=== PATIENT | female | born 1985 | race Caucasian/White ===

== ENCOUNTER 2023-08-04 21:46 | Inpatient (IN) | payer BC, SELFPAY ==
[2023-08-05 00:38] VITALS: BP 121/78; PULSE 76; RESP 18; TEMP 36.7; O2SAT 98
[2023-08-05 00:43] VITALS: BMI 34.1
--- NOTE | 2023-08-05 01:47 | PC.ADMIT ---
Patient is a 38 yr old female presented to [facility] at midnight on 08-05 from [facility] via EMS. She is groggy/sedated, states she just received IM Haldol and some other meds and is does not want to participate in a full assessment and wants to go to bed. Patient is calm and cooperative and states she is open the this experience but soon after showing her to her room she came out and requested a 3 day. When asked about her depression/anxiety, she states she is not really anxious but her depression has been chronic. She states she in not acutely suicidal. She states she has had thoughts with a plan as well as self harming behaviors. She has a wound non her left hip where she cut herself with a razorblade. The wound was treated at [facility] and she has a 4x4 dressing that is clean, dry, intact. She is alert/oriented x4, educated, states previous family trauma but does not elaborate. She lives alone in an apartment, no relationship. She states she has no current stressors. She states that her depression has been escalating since May. She was treated in-patient as well as recently a [facility] but they have not helped. Place on 5 minute checks d/t self harming behaviors and wound she currently has. Will continue to monitor sleep and behavior overnight and continue care with the team in the morning.
[2023-08-05] MEDS: hydrOXYzine HCL 25 MG TABLET PO (08:29)
[2023-08-05 08:47] LABS: Estimated Average Glucose 108 mg/dL; Hemoglobin A1c % 5.4 % (<6.0)
[2023-08-05 09:03] LABS: Alanine Aminotransferase 21 U/L (0-31); Albumin Level 4.2 g/dL (3.5-5.0); Alkaline Phosphatase 44 U/L (39-117); Anion Gap 10 (12-20); Aspartate Amino Transferase 44 U/L (5-31); Bilirubin Total 0.4 mg/dL (0.0-1.0); Blood Urea Nitrogen 10 mg/dL (9-16); Calcium 9.3 mg/dL (8.4-10.2); Carbon Dioxide 25 mmol/L (22-29); Chloride 107 mmol/L (96-108); Cholesterol 179 mg/dL (<200); Creatinine Clr Calc Pharmacy 120.4; Estimated Glomerular Filt Rate > 60; Glucose Fasting 101 mg/dL (60-99); HDL Cholesterol 46 mg/dL (>40); LDL Cholesterol Calculated 105 mg/dL (<100); Magnesium 2.1 mg/dL (1.6-2.6); Potassium 4.1 mmol/L (3.3-5.1); Sodium 138 mmol/L (135-145); Total Protein 7.2 g/dL (6.5-8.0); Triglycerides 141 mg/dL (<150)
--- NOTE | 2023-08-05 09:19 | P.HPPS_ITS ---
HPI Date of Service: 08/05/23 Chief Complaint: PTSD, Recurrent Major Depression, Borderline PersD Sources of Information: patient interviewed, chart reviewed and crisis/core team assessment reviewed HPI Subjective Notes: Alcazar Warning and Conditional Voluntary Narrative: Patient is a 38-year-old female with history of depression PTSD, currently works for the [employer], who presents after making a suicidal comment at [facility] hospital program. Few weeks ago Patient was discharged from inpatient psychiatric admission at [facility] (in [place]) for medication adjustment and has been attending a partial day program. ?Initially, Patient thought medication change (getting on Geodon) was helpful but it was increased right before discharge and she soon found it to be sedating, struggled to focus at work and felt nauseated and agitated and this past week discontinued medication.? Feeling dysregulated, She subsequently got a resurgence of SI, intermittent urges to superficially self-harm and depressive symptoms.? Patient is very clear however that she was in no way actually suicidal and that SI are just transient thoughts.? She denies any history of attempts, citing her Bahai radhames and love for her family as strong protective factors. ?Patient says that these urges are now resolved and she is starting to feel better as she has been off the Geodon for several days and the effect has worn off. Patient does not feel that she needs to be psychiatrically admitted and just wanted to discuss medication changes, asking if she can be discharge tomorrow so that she can get back to work. ?She does not want to stay longer for any further medication management at this time. On further discussion Patient about her history of therapy, including EMDR and trauma history. She also shared that she has a history of wanting to be physically restrained.? Patient discussed urged be restrained at length saying she chronically just feels this need to be held tightly. The urge is intermittent and often a strong hug by someone will be enough to satisfy her for months; and when she is dating someone she gets this need fulfilled.? She denies any sexual component associated with being restrained; she speculates it has to do with history of trauma but is not sure. ?She has looked into buying a contraption that she could have at home so that could satisfy this need and has considered hiring people to physically restrain her (her hesitancy due to not sure if she could trust the other people to remain safe). ?Regarding this urge/perceived need, Patient volunteered that during hospitalizations, she frequently purposely engages in self-harm specifically so that staff will be forced to physically restrain her. ?Patient said that she is feeling this urge now however she feels able to keep herself in control and will not self-harm.? Patient reiterated that she very much wants to discharge tomorrow but then asked insurance underwriter if she would still be allowed to discharge if tonight, she were to end up getting physically restrained? Past Psychiatric History: Psychiatric hospitalization 2021, May 2023 No history of suicide attempts Engaged in therapy including EMDR Medication trials: Antigo, not helpful, Seroquel, multiple SSRI trials, TMS, Abilify Medical Evaluation Reviewed: Hospitalist Adalberto Pending [facility] Medical History (Updated 10/16/23 @ 17:08 by Pk Shah MD) PTSD (post-traumatic stress disorder) Social History: Lives alone, currently employed by the [employer] where she is worked for 9 years. Substance History: Denies Trauma History: Positive trauma history Diagnostics Vital Signs (24Hr): Vital Signs - 24 hr 08/05/23 00:38 Temperature 98.0 F Pulse Rate 76 Respiratory Rate 18 Blood Pressure 121/78 Pulse Oximetry 98 Oxygen Delivery Method Room Air BMI result Body Mass Index 34.1 Labs 08/05/23 07:58 Labs: Laboratory Results - last 48 hr 08/05/23 07:58 Sodium 138 Potassium 4.1 Chloride 107 Carbon Dioxide 25 Anion Gap 10 L BUN 10 Creatinine 0.70 Estim Creat Clear Calc 120.4 Estimated GFR > 60 Fasting Glucose 101 H Estimat Average Glucose 108 Hemoglobin A1c % 5.4 Calcium 9.3 Magnesium 2.1 Total Bilirubin 0.4 AST 44 H ALT 21 Alkaline Phosphatase 44 Total Protein 7.2 Albumin 4.2 Triglycerides 141 Cholesterol 179 LDL Cholesterol, Calc 105 H HDL Cholesterol 46 Meds/Allergies Meds Home Medications Medication Instructions Recorded Confirmed Type alprazolam 0.25 mg tablet (Xanax) 0.25 mg PO DAILY PRN Anxiety 08/05/23 08/05/23 History hydroxyzine HCl 50 mg tablet 50 mg PO DAILY PRN anxiety 08/05/23 08/05/23 History trazodone 50 mg tablet 100 mg PO BEDTIME PRN insomnia 08/05/23 08/05/23 History venlafaxine 75 mg capsule,extended 225 mg PO QAM depressive disorder 08/05/23 08/05/23 History release 24 hr Allergies Allergies Allergy/AdvReac Type Severity Reaction Status Date / Time azithromycin Allergy Hives Verified 08/04/23 21:16 Mental Status Exam Mental Status Exam Narrative: Pt is alert and oriented; behavior is cooperative, friendly and calm; patient is not in distress; dressed in casual attire with unkempt hair but adequate hygiene; mood is described as ok and affect congruent; eye contact appropriate; Speech is normal rate, volume and prosody and not pressured; no psychomotor agitation/retardation present; thought process is organized and goal directed; Thought content is on tx, chronic struggles; otherwise pertinent to relevant topics and without any delusional content, paranoid ideations or grandiosity; denies any SI/HI. There is no evidence of perceptual disturbance. Patients insight and judgment appear intact. Assessment & Plan Assessment & Plan (1) PTSD (post-traumatic stress disorder): Status: Acute Code(s): F43.10 - Post-traumatic stress disorder, unspecified Plan Patient is a 38-year-old female with history of depression PTSD, currently works for the post [employer], who presents after making a suicidal comment at partial hospital program. Few weeks ago Patient was discharged from inpatient psychiatric admission at [facility] (in [place]) for medication adjustment and has been attending a partial day program. ?Initially, Patient thought medication change (getting on Geodon) was helpful but it was increased right before discharge and she soon found it to be sedating, struggled to focus at work and felt nauseated and agitated and this past week discontinued medication.? Feeling dysregulated, She subsequently got a resurgence of SI, intermittent urges to superficially self-harm and depressive symptoms.? Patient is very clear however that she was in no way actually suicidal and that SI are just transient thoughts.? She denies any history of attempts, citing her Bahai radhames and love for her family as strong protective factors. ?Patient says that these urges are now resolved and she is starting to feel better as she has been off the Geodon for several days and the effect has worn off. Patient does not feel that she needs to be psychiatrically admitted and just wanted to discuss medication changes, asking if she can be discharge tomorrow so that she can get back to work. ?She does not want to stay longer for any further medication management at this time. On further discussion Patient about her history of therapy, including EMDR and trauma history. She also shared that she has a history of wanting to be physically restrained.? Patient discussed urged be restrained at length saying she chronically just feels this need to be held tightly. The urge is intermittent and often a strong hug by someone will be enough to satisfy her for months; and when she is dating someone she gets this need fulfilled.? She denies any sexual component associated with being restrained; she speculates it has to do with history of trauma but is not sure. ?She has looked into buying a contraption that she could have at home so that could satisfy this need and has considered hiring people to physically restrain her (her hesitancy due to not sure if she could trust the other people to remain safe). ?Regarding this urge/perceived need, Patient volunteered that during hospitalizations, she frequently purposely engages in self-harm specifically so that staff will be forced to physically restrain her. ?Patient said that she is feeling this urge now however she feels able to keep herself in control and will not self-harm (she understands that fabricating self-harm in order to get restrained is maladaptive and unsafe for staff..).? Patient reiterated that she very much wants to discharge tomorrow but then asked insurance underwriter if she would still be allowed to discharge if tonight, she were to end up getting physically restrained? Impression: History of trauma, PTSD, depression. 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 At this time, Patient reports that she is back to baseline and wants to discharge tomorrow so that she can return to work. She has no history of suicide attempts and her passive SI is chronic and fleeting and resolves on its own. Patient acknowledges she has urges to purposely self-harm in order to for staff to physically restrain her. Patient says she will not do so. Patient has outpatient providers already established. Will have patient remain on the unit to observe her demonstrating continued stability however she is not in imminent risk for harm to self or others and she is appropriate to continue treatment in the community. Furthermore patient seems much more at risk of decompensating due to hospitalization, rather than benefiting from it as hospitalization itself triggers patient to purposely self- harm in order to get a necessarily restrained, a scenario that would be unsafe for everyone involved. Plan: CV Q 15 minute checks Continue home medications Likely DC tomorrow Patient educated on: diagnosis, medication risk/benefits and therapeutic strategies Informed Consent: understands Reason for continued inpatient stay Substantial Risk for: stable for discharge Statement Statement: I have reviewed the history and physical and performed a pertinent examination on my patient. No changes have occurred unless specified. If the History and Physical was not performed prior to admission, the Hospitalist's service will be consulted for completing the admission physical. Time Spent With Patient Time: Total time managing care of this patient today ____ minutes.
[2023-08-05 09:23] LABS: Free T4 (Free Thyroxine) 0.83 ng/dL (0.71-1.85); Thyroid Stimulating Hormone 2.38 uIU/mL (0.32-4.0)
[2023-08-05 09:29] LABS: Folate 11.7 ng/mL (> or = 4.0); Vitamin B12 741 pg/mL (200-900)
[2023-08-05] MEDS: Venlafaxine HCl ER 150 MG CAP.ER.24H PO (09:32)
[2023-08-05 09:44] VITALS: BP 130/78; PULSE 80; RESP 16; TEMP 36; O2SAT 100
--- NOTE | 2023-08-05 11:32 | P.CONHOSP_ITS ---
History of Present Illness Data of Consult Service Date: 08/05/23 Primary Care Provider: Unknown Physician HPI Reason for consult: Routine medical H&P 38 yo F who is admitted to for depression. She denies any PMH nor endorses any active medical issues. Medical consult requested for routine medical H&P per protocol. PMH Denies PSH Ortho surgery - elbow FH DM in father SH denies tobacco, alcohol, illicit substance use Review of Systems 2 Review of Systems: negative except HPI PMFSH Social History Household Members: None Housing: Apartment Do you presently have visiting nurse or other home services: No Patient Tobacco Use Status: Never used Tobacco Smoked in Last 30 Days: No e-Cigarette/Vaping Use: Never Used Second Hand Smoke Exposure: No Use of substances other than those prescribed or required for medical reasons: No Have you been hit, kicked, punched, or otherwise hurt by someone within the past year? If so, by whom?: No Do you feel safe in your current relationship?: No Current Relationship Is there a partner from a previous relationship who is making you feel unsafe now?: No Are you made to feel afraid or neglected: No Spiritual Healthcare Practices: spiritual, not pentecostal Advance Directives: No Advance Directives Information Provided: Yes Do you have thoughts of harming others: None Do you have a plan to hurt others: No Plan Recently lost weight without trying: No Eating poorly because of decreased appetite: Yes Nutrition Risks: No Nutritional Risk Patient : No : No Poor oral hygiene: No Meds Allergies Allergy/AdvReac Type Severity Reaction Status Date / Time azithromycin Allergy Hives Verified 08/04/23 21:16 Active Medications: Current Medications Acetaminophen (Acetaminophen 325 Mg Tablet) 650 mg PO Q6H PRN PRN Reason: Headache/Pain Mild Scale (1-3) Al Hydroxide/Mg Hydroxide (Magnesium Hydrox/Alum Hydrox 30 Ml Oral.Susp) 30 ml PO Q6H PRN PRN Reason: Heartburn/Nausea Hydroxyzine HCl (Hydroxyzine Hcl 25 Mg Tablet) 25 mg PO Q6H PRN PRN Reason: Anxiety Last Admin: 08/05/23 08:29 Dose: 25 mg Magnesium Hydroxide (Milk Of Magnesia 30 Ml Oral.Susp) 30 ml PO DAILY PRN PRN Reason: Constipation Trazodone HCl (Trazodone Hcl 50 Mg Tablet) 50 mg PO BEDTIME MRX1 PRN PRN Reason: Insomnia Venlafaxine HCl (Venlafaxine Hcl Er 150 Mg Cap.Er.24h) 150 mg PO DAILY NUVIA Last Admin: 08/05/23 09:32 Dose: 150 mg Physical Exam 2 Vital Signs and Narrative: Vital Signs: Last Vital Signs Temp 96.8 F 08/05/23 09:44 Pulse 80 08/05/23 09:44 Resp 16 08/05/23 09:44 BP 130/78 08/05/23 09:44 Pulse Ox 100 08/05/23 09:44 O2 Del Method Room Air 08/05/23 09:44 BMI result Body Mass Index 34.1 Const: Other: General - no acute distress, appears comfortable Cardiovascular - regular rate and rhythm, S1-S2 Lungs - normal respiratory effort, clear to auscultation bilaterally, no wheezing Abdomen - soft, nontender, no rebound or guarding Extremities - no edema bilaterally Neuro - awake and alert, no focal deficits; cn 2-12 intact b/l Results Labs 08/05/23 07:58 Labs: Laboratory Results - last 24 hr 08/05/23 07:58 Anion Gap 10 L Estim Creat Clear Calc 120.4 Estimated GFR > 60 Fasting Glucose 101 H Estimat Average Glucose 108 Hemoglobin A1c % 5.4 Calcium 9.3 Magnesium 2.1 Total Bilirubin 0.4 AST 44 H ALT 21 Alkaline Phosphatase 44 Total Protein 7.2 Albumin 4.2 Triglycerides 141 Cholesterol 179 LDL Cholesterol, Calc 105 H HDL Cholesterol 46 Vitamin B12 741 Folate 11.7 TSH 2.38 Free T4 0.83 Assessment and Plan (1) Routine medical exam: Status: Acute Plan 38 yo F who is admitted to . Medical consultation sought for routine medical H&P. Patient has no active nor chronic medical issues. Patient has been counseled on age appropriate health maintenance as an outpatient. Continue care per primary team. Will sign off. Please re-consult if any issues arise.
[2023-08-05] MEDS: clonazePAM 0.5 MG TABLET PO (12:30)
[2023-08-05] MEDS: lamoTRIgine 100 MG TABLET 200 MG PO ×2 (14:50→19:35)
[2023-08-05] MEDS: Ziprasidone 20 MG CAPSULE PO (17:06)
[2023-08-05 19:31] VITALS: BP 148/96; PULSE 101; RESP 18
[2023-08-05] MEDS: traZODone HCL 100 MG TABLET PO (19:35)
[2023-08-05] MEDS: Prazosin HCL 1 MG CAPSULE PO (19:35)
[2023-08-06 07:00] VITALS: BMI 33.8
[2023-08-06] MEDS: Venlafaxine HCl ER 37.5 MG CAP.ER.24H 187.5 MG PO (08:01)
[2023-08-06] MEDS: Ziprasidone 20 MG CAPSULE PO (08:01)
[2023-08-06] MEDS: Acetaminophen 325 MG TABLET 650 MG PO (08:24)
[2023-08-06] MEDS: hydrOXYzine HCL 50 MG TABLET PO (08:34)
--- NOTE | 2023-08-06 09:00 | ECG_ITS ---
Test Reason : qtc check Blood Pressure : / mmHG Vent. Rate : 078 BPM Atrial Rate : 078 BPM P-R Int : 144 ms QRS Dur : 080 ms QT Int : 354 ms P-R-T Axes : 053 033 033 degrees QTc Int : 403 ms Normal sinus rhythm with sinus arrhythmia Otherwise normal ECG No previous ECGs available Referred By: Pk Shah Electronically Signed By:CASEY DUMONT MD
[2023-08-06 09:10] VITALS: BP 116/76; PULSE 85; RESP 16; TEMP 36; O2SAT 97
--- NOTE | 2023-08-06 09:39 | P.PNPSI_ITS ---
Subjective Subjective Date of Service: 08/06/23 Reason For Visit: PTSD, Recurrent Major Depression, Borderline PersD Diagnostics Vital Signs (24Hr): Vital Signs - 24 hr 08/05/23 09:44 08/05/23 19:31 08/06/23 09:10 Temperature 96.8 F 96.8 F Pulse Rate 80 101 H 85 Respiratory Rate 16 18 16 Blood Pressure 130/78 148/96 H 116/76 Pulse Oximetry 100 97 Oxygen Delivery Method Room Air Room Air BMI result Body Mass Index 34.1 Labs 08/05/23 07:58 Labs: Laboratory Results - last 48 hr 08/05/23 07:58 Sodium 138 Potassium 4.1 Chloride 107 Carbon Dioxide 25 Anion Gap 10 L BUN 10 Creatinine 0.70 Estim Creat Clear Calc 120.4 Estimated GFR > 60 Fasting Glucose 101 H Estimat Average Glucose 108 Hemoglobin A1c % 5.4 Calcium 9.3 Magnesium 2.1 Total Bilirubin 0.4 AST 44 H ALT 21 Alkaline Phosphatase 44 Total Protein 7.2 Albumin 4.2 Triglycerides 141 Cholesterol 179 LDL Cholesterol, Calc 105 H HDL Cholesterol 46 Vitamin B12 741 Folate 11.7 TSH 2.38 Free T4 0.83 Medications Medications Current Medications Acetaminophen (Acetaminophen 325 Mg Tablet) 650 mg PO Q6H PRN PRN Reason: Headache/Pain Mild Scale (1-3) Last Admin: 08/06/23 08:24 Dose: 650 mg Al Hydroxide/Mg Hydroxide (Magnesium Hydrox/Alum Hydrox 30 Ml Oral.Susp) 30 ml PO Q6H PRN PRN Reason: Heartburn/Nausea Alprazolam (Alprazolam 0.25 Mg Tablet) 0.25 mg PO BID PRN PRN Reason: Anxiety/panic Clonazepam (Clonazepam 0.5 Mg Tablet) 0.5 mg PO DAILY PRN PRN Reason: Anxiety Last Admin: 08/05/23 12:30 Dose: 0.5 mg Hydroxyzine HCl (Hydroxyzine Hcl 50 Mg Tablet) 50 mg PO Q6H PRN PRN Reason: Anxiety Last Admin: 08/06/23 08:34 Dose: 50 mg Lamotrigine (Lamotrigine 100 Mg Tablet) 200 mg PO BEDTIME NUVIA Last Admin: 08/05/23 19:35 Dose: 200 mg Magnesium Hydroxide (Milk Of Magnesia 30 Ml Oral.Susp) 30 ml PO DAILY PRN PRN Reason: Constipation Prazosin HCl (Prazosin Hcl 1 Mg Capsule) 1 mg PO BEDTIME [facility]; Protocol Last Admin: 08/05/23 19:35 Dose: 1 mg Trazodone HCl (Trazodone Hcl 100 Mg Tablet) 100 mg PO BEDTIME [facility] Last Admin: 08/05/23 19:35 Dose: 100 mg Venlafaxine HCl (Venlafaxine Hcl Er 37.5 Mg Cap.Er.24h) 187.5 mg PO DAILY [facility] Last Admin: 08/06/23 08:01 Dose: 187.5 mg Ziprasidone (Ziprasidone 20 Mg Capsule) 20 mg PO BIDWM [facility] Last Admin: 08/06/23 08:01 Dose: 20 mg Allergies Allergies Allergy/AdvReac Type Severity Reaction Status Date / Time azithromycin Allergy Hives Verified 08/04/23 21:16 Assessment & Plan Assessment & Plan (1) Routine medical exam: Status: Acute Code(s): Z00.00 - Encounter for general adult medical examination without abnormal findings Plan 38 yo F who is admitted to . Medical consultation sought for routine medical H&P. Patient has no active nor chronic medical issues. Patient has been counseled on age appropriate health maintenance as an outpatient. Continue care per primary team. Will sign off. Please re-consult if any issues arise. Time Spent With Patient Time: Total time managing care of this patient today ____ minutes.
--- NOTE | 2023-08-06 17:02 | P.DS_ITS ---
DS: Providers Provider Date of Service: 08/06/23 Date of admission: 08/04/23 21:46 Date of discharge: 08/06/23 Primary care physician: Unknown Physician Attending physician on admission: Pk Shah Consults: 08/05/23 05:38 Consult to Hospitalist Routine Comment: Consulting Provider: Hospitalist Reason For Exam: hospital transfer Attending physician on discharge: Pk Shah DS: Diagnosis Discharge Diagnosis (1) Routine medical exam: Status: Deleted DS: Medications Discharge Medications Home Medications: Home Medications Medication Instructions Recorded Confirmed alprazolam 0.25 mg tablet (Xanax) 0.25 mg PO DAILY PRN Anxiety 08/05/23 08/05/23 hydroxyzine HCl 50 mg tablet 50 mg PO DAILY PRN anxiety 08/05/23 08/05/23 trazodone 50 mg tablet 100 mg PO BEDTIME PRN insomnia 08/05/23 08/05/23 venlafaxine 75 mg capsule,extended 225 mg PO QAM depressive disorder 08/05/23 08/05/23 release 24 hr Previous Rx's Medication Instructions Recorded lamotrigine 100 mg tablet 200 mg (2 x 100 mg) PO BEDTIME 30 08/06/23 days #60 tabs prazosin 1 mg capsule 1 mg PO BEDTIME 30 days #30 caps 08/06/23 ziprasidone HCl 20 mg capsule 20 mg PO BIDWM 30 days #60 caps 08/06/23 Mental Status Exam Mental Status Exam Narrative: Pt is alert and oriented; behavior is cooperative, friendly and calm; patient is not in distress; dressed in casual attire with unkempt hair but adequate hygiene; mood is described as ok and affect congruent; eye contact appropriate; Speech is normal rate, volume and prosody and not pressured; no psychomotor agitation/retardation present; thought process is organized and goal directed; Thought content is on tx, chronic struggles; otherwise pertinent to relevant topics and without any delusional content, paranoid ideations or grandiosity; denies any SI/HI. There is no evidence of perceptual disturbance. Patients insight and judgment appear intact. Data Data Completed and Pending Completed studies during hospitalization [Text1]: 08/05/23 07:58 Sodium 138 Potassium 4.1 Chloride 107 Carbon Dioxide 25 Anion Gap 10 L BUN 10 Creatinine 0.70 Estim Creat Clear Calc 120.4 Estimated GFR > 60 Fasting Glucose 101 H Estimat Average Glucose 108 Hemoglobin A1c % 5.4 Calcium 9.3 Magnesium 2.1 Total Bilirubin 0.4 AST 44 H ALT 21 Alkaline Phosphatase 44 Total Protein 7.2 Albumin 4.2 Triglycerides 141 Cholesterol 179 LDL Cholesterol, Calc 105 H HDL Cholesterol 46 Vitamin B12 741 Folate 11.7 TSH 2.38 Free T4 0.83 DS: Summary Hospital Course Hospital Course: HPI: Patient is a 38-year-old female with history of depression PTSD, currently works for the [employer], who presents after making a suicidal comment at partial hospital program. Few weeks ago Patient was discharged from inpatient psychiatric admission at [facility] (in [place]) for medication adjustment and has been attending a partial day program. ?Initially, Patient thought medication change (getting on Geodon) was helpful but it was increased right before discharge and she soon found it to be sedating, struggled to focus at work and felt nauseated and agitated and this past week discontinued medication.? Feeling dysregulated, She subsequently got a resurgence of SI, intermittent urges to superficially self-harm and depre ssive symptoms.? Patient is very clear however that she was in no way actually suicidal and that SI are just transient thoughts.? She denies any history of attempts, citing her Jewish radhames and love for her family as strong protective factors. ?Patient says that these urges are now resolved and she is starting to feel better as she has been off the Geodon for several days and the effect has worn off. Patient does not feel that she needs to be psychiatrically admitted and just wanted to discuss medication changes, asking if she can be discharge tomorrow so that she can get back to work. ?She does not want to stay longer for any further medication management at this time. On further discussion Patient about her history of therapy, including EMDR and trauma history. She also shared that she has a history of wanting to be physically restrained.? Patient discussed urged be restrained at length saying she chronically just feels this need to be held tightly. The urge is intermittent and often a strong hug by someone will be enough to satisfy her for months; and when she is dating someone she gets this need fulfilled.? She denies any sexual component associated with being restrained; she speculates it has to do with history of trauma but is not sure. ?She has looked into buying a contraption that she could have at home so that could satisfy this need and has considered hiring people to physically restrain her (her hesitancy due to not sure if she could trust the other people to remain safe). ?Regarding this urge/perceived need, Patient volunteered that during past hospitalizations, she would frequently, purposely engage in self-harm specifically so that staff will be forced to physically restrain her. ?Patient said that she is feeling this urge now however she feels able to keep herself in control and will not self- harm (she understands that fabricating self-harm in order to get restrained is maladaptive and unsafe for staff..).? Patient reiterated that she very much wa nts to discharge tomorrow but then asked law writer if she would still be allowed to discharge if tonight, she were to end up getting physically restrained? Impression and hospital course: History of trauma, PTSD, depression. 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 At this time, Patient reports that she is back to baseline and wants to discharge tomorrow so that she can return to work. She has no history of suicide attempts and her passive SI is chronic and fleeting and resolves on its own. Patient acknowledges she has urges to pur posely self-harm in order to for staff to physically restrain her. Patient says she will not do so. Patient has outpatient providers already established. Decided to keep the patient overnight in order to observe her demonstrating continued stability. Patient remained in good behavioral and impulse control throughout her stay on the unit. She was without any SI, future oriented and wanted discharge, willing to continue with her current outpatient provider. Patient was not in imminent risk for harm to self or others and appropriate to continue treatment in the community. Furthermore it remained law writer's opinion that patient was more at risk of decompensating due to hospitalization rather than benefiting from it as hospitalization itself triggers patient to purposely self-harm in order to get a necessarily restrained, a scenario that would be unsafe for everyone involved. Patient's request for discharge honored. Time spent discussing smoking cessation with patient: 3 to 10 minutes Status at Discharge Functional status at discharge: independent ambulation Overall status at discharge: patient is back to baseline Time Spent with Patient Time attestation: Total time managing care of this patient today ____ minutes. Time spent: Less than 30 minutes Discharge Plan Discharge Anticipated Discharge Date/Time: 08/06/23 18:00 Patient Disposition: Home, Self-Care Discharge Diagnosis: PtSD, chronic with acute exacerbation Referrals: Jon Armas PA [[employer]] - 1 Week Discharge Medications: New prazosin 1 mg Capsule 1 mg PO BEDTIME 30 Days Qty: 30 0RF Protocol: Hold for SBP< HOLD for SBP < : 90 lamotrigine 100 mg Tablet 200 mg PO BEDTIME 30 Days Qty: 60 0RF ziprasidone HCl 20 mg Capsule 20 mg PO BIDWM 30 Days Qty: 60 0RF Continued alprazolam [Xanax] 0.25 mg Tablet 0.25 mg PO DAILY PRN (Reason: Anxiety) venlafaxine 75 mg capsule,extended release 24hr 225 mg PO QAM trazodone 50 mg tablet 100 mg PO BEDTIME PRN (Reason: insomnia) hydroxyzine HCl 50 mg tablet 50 mg PO DAILY PRN (Reason: anxiety) Discontinued lamotrigine 200 mg tablet 400 mg PO DAILY tramadol 50 mg tablet 50 mg PO DAILY PRN (Reason: Anxiety) ziprasidone HCl 40 mg capsule 40 mg PO TID Discharge Orders: Discharge Order (Routine); Ordered 08/06/23 Ordered By: Pk Shah Diet: Regular diet Activity on Discharge: As tolerated Stand Alone Forms: Patient Portal Discharge page, Community Support Care Plan Goals: Maintain mood and safe behaviors Take medications as prescribed Practice coping skills Continue with outpatient providers and reach out to them as needed Health Concerns: Mood stability and behaviors Plan of Treatment: Follow up with your PCP, psychiatric provider and other outpatient providers regarding above concerns Take medications as prescribed Assessment: Risk assessment at time of discharge:? Patient was interviewed prior to discharge and found to be fully oriented and without any SI or HI. Patient has improved insight and judgment and wants to continue treatment. Patient is not in imminent risk of harm to self or others and has a safety plan that includes presenting to the closest ER or calling 911 if feeling unsafe.? Patient has been observed closely by nursing and unit staff throughout admission; patient has not engaged in any behaviors that suggest dangerousness to self or others and has demonstrated appropriate behaviors and impulse control Discharge Date/Time: 08/06/23 17:51
[2023-08-06] MEDS: ALPRAZolam 0.25 MG TABLET PO (17:26)
== END 2023-08-06 17:51 | disposition home or self-care (01) | DRG 755 ==
PROVIDERS: Clinical Nurse Specialist Psychiatric/Mental Health, Adult; Admitting Provider Psychiatry & Neurology Psychiatry; Visit Provider Psychiatry & Neurology Psychiatry
DX: F43.12 Post-traumatic stress disorder, chronic (principal); Z79.899 Other long term (current) drug therapy
CPT/HCPCS: 36415; 80053; 80061; 82607; 82746; 83036; 83735; 84439; 84443; 93005

== ENCOUNTER → 2023-08-04 21:46 | Outpatient (BNV) | payer OTHER, BC, SELFPAY | PROVIDERS: Admitting Provider Psychiatry & Neurology Psychiatry; Visit Provider Family Medicine | DX: Z02.2 Encounter for examination for admission to residential institution (principal) | CPT/HCPCS: 99429 ==

== ENCOUNTER → 2023-08-04 21:46 | Outpatient (BNV) | payer BC, SELFPAY | PROVIDERS: Admitting Provider Psychiatry & Neurology Psychiatry; Visit Provider Psychiatry & Neurology Psychiatry | DX: F33.2 Major depressive disorder, recurrent severe without psychotic features (principal); F43.11 Post-traumatic stress disorder, acute | CPT/HCPCS: 99222; 99238 ==